=== PATIENT | male | born 1960 | race Caucasian/White ===

== ENCOUNTER → 2017-01-20 | Outpatient (CLI) | payer OTHER ==
[~2017-01-20] MED LIST: ASPI-515 PO; CHOL200024 PO; LEVO150T PO; LEVO175T2 PO; OMNIPAQUE 350 MG/ML, 100ML BOTTLE ONE
== END | disposition home or self-care (01) ==
LOC: CFH 14:53
PROVIDERS: ATTEND Thoracic Surgery (Cardiothoracic Vascular Surgery)
DX: Z01.818 Encounter for other preprocedural examination (principal); I71.2 Thoracic aortic aneurysm, without rupture; J98.11 Atelectasis; I77.810 Thoracic aortic ectasia; Z95.4 Presence of other heart-valve replacement
CPT/HCPCS: 71275; Q9967

== ENCOUNTER 2017-02-22 10:33 | Day surgery (SDC) | payer OTHER ==
[2017-02-21 09:57] VITALS: BP 95/67
[2017-02-21 10:45] LABS: ASPARTATE AMINO TRANSFERASE 41 U/L (15-37); BLOOD UREA NITROGEN 15 mg/dL (7-18)
[~2017-02-22] VITALS: Ht 175.3 cm; Wt 72.7 kg
[~2017-02-22 10:33] MED LIST changes: -OMNIPAQUE 350 MG/ML, 100ML BOTTLE ONE
[2017-02-22] MEDS ORDERED: HEPARIN 1,000 UNITS/ML, 10ML ONE (11:48)
[2017-02-22] MEDS ORDERED: MIDAZOLAM 1 MG/ML, 5ML ONE (11:48)
[2017-02-22] MEDS ORDERED: LIDOCAINE 2%, 20ML ONE (11:48)
[2017-02-22] MEDS ORDERED: VERAPAMIL 2.5 MG/ML, 2ML ONE (11:48)
[2017-02-22] MEDS ORDERED: FENTANYL PF 100 MCG/2ML ONE (11:48)
[2017-02-22] MEDS ORDERED: NITROGLYCERIN 5 MG/ML, 10ML ONE (12:03)
[2017-02-22] MEDS ORDERED: DIPHENHYDRAMINE 50 MG/ML, 1ML ONE (12:11)
[2017-02-22] MEDS ORDERED: SODIUM CHLORIDE 0.9% 1,000 ML IV SCH (12:32)
== END 2017-02-22 16:37 | disposition home or self-care (01) ==
LOC: CACL 10:33
PROVIDERS: ATTEND Internal Medicine Cardiovascular Disease
DX: Z01.810 Encounter for preprocedural cardiovascular examination (principal); Z95.2 Presence of prosthetic heart valve; E03.8 Other specified hypothyroidism; E55.9 Vitamin D deficiency, unspecified; E78.5 Hyperlipidemia, unspecified
CPT/HCPCS: 36415; 71020; 80053; 85025; 93005; 93458; 99156; 99157; C1769; C1894; J1200; J1644; J2250; J3010; J3490; Q9967

== ENCOUNTER 2017-03-16 04:33 | Inpatient (IN) | payer OTHER ==
[2017-03-15 14:20] LABS: ASPARTATE AMINO TRANSFERASE 35 U/L (15-37); BLOOD UREA NITROGEN 17 mg/dL (7-18)
[~2017-03-16] VITALS: Ht 175.3 cm; Wt 80.7 kg
[2017-03-16] MEDS ORDERED: CHLORHEXIDINE MOUTHWASH 15 ML UDC MM SCH (05:00)
[2017-03-16] MEDS ORDERED: DO NOT GIVE MC SCH (05:00)
[2017-03-16] MEDS ORDERED: INSULIN ASPART 100 UNITS/ML, PEN SQ-INSULIN SCH (06:00)
[2017-03-16] MEDS ORDERED: FENTANYL PF 1000 MCG/20ML ONE (07:03)
[2017-03-16] MEDS ORDERED: MIDAZOLAM 10MG/2 ML ONE (07:03)
[2017-03-16] MEDS ORDERED: MANNITOL PMX 20% 500 ML IVPB PRN (07:30)
[2017-03-16] MEDS ORDERED: ROCURONIUM 10 MG/ML ONE (07:30)
[2017-03-16] MEDS ORDERED: REGULAR INSULIN 62.5 UNITS in SODIUM CHLORIDE 0.9% 249.375 ML IV PRN ×2 (07:30→12:31)
[2017-03-16] MEDS ORDERED: ALBUMIN HUMAN 5% 500 ML IV ONE ×2 (07:30→17:00)
[2017-03-16] MEDS ORDERED: PHENYLEPHRINE 10 MG in SODIUM CHLORIDE 0.9% 249 ML IV PRN ×2 (07:30→12:31)
[2017-03-16] MEDS ORDERED: PROPOFOL 10 MG/ML, 20ML ONE (07:30)
[2017-03-16] MEDS ORDERED: DEXMEDETOMIDINE 200 MCG in SODIUM CHLORIDE 0.9% 48 ML IV SCH (07:30)
[2017-03-16] MEDS ORDERED: EPINEPHRINE 2 MG in SODIUM CHLORIDE 0.9% 248 ML IV SCH (07:30)
[2017-03-16] MEDS ORDERED: CEFUROXIME 1.5 GM in SODIUM CHLORIDE 0.9% 50 ML IVPB PRN (07:30)
[2017-03-16] MEDS ORDERED: POTASSIUM CHLORIDE 80 MEQ, SODIUM BICARBONATE 8.4% 10 MEQ, MAGNESIUM SULFATE 0.5 GM, LI... IV PRN (07:30)
[2017-03-16] MEDS ORDERED: VANCOMYCIN 1,100 MG in SODIUM CHLORIDE 0.9% 250 ML IV PRN (07:30)
[2017-03-16] MEDS ORDERED: MUPIROCIN OINT 2%, 22GM TP SCH (09:00)
[2017-03-16] MEDS: SODIUM CHLORIDE FLUSH 10ML SYR IVF SCH ×3 (09:00→20:35)
[2017-03-16] MEDS ORDERED: PROTAMINE SULFATE 10 MG/ML, 25ML ONE (11:52)
[2017-03-16] MEDS ORDERED: ALBUMIN HUMAN 25% 50 ML ONE (11:52)
[2017-03-16] MEDS ORDERED: CALCIUM CHLORIDE 10%, 10ML SYR ONE (11:52)
[2017-03-16] MEDS ORDERED: methylPREDNISolone SOD SUCC 125 MG/2 ML ONE (11:53)
[2017-03-16] MEDS ORDERED: HEPARIN 1,000 UNITS/ML, 30ML ONE (11:53)
[2017-03-16] MEDS ORDERED: AMINOCAPROIC ACID 250 MG/ML, 20ML ONE (11:53)
[2017-03-16] MEDS ORDERED: SODIUM BICARBONATE 1 MEQ/ML, 50ML VIAL ONE (11:53)
[2017-03-16] MEDS ORDERED: LIDOCAINE 2% 100MG/5ML SYRINGE ONE (11:53)
[2017-03-16] MEDS ORDERED: SODIUM CHLORIDE 0.9% 1,000 ML IV PRN (12:31)
[2017-03-16] MEDS ORDERED: DEXMEDETOMIDINE 200 MCG in SODIUM CHLORIDE 0.9% 48 ML IV PRN (12:31)
[2017-03-16] MEDS ORDERED: NITROGLYCERIN/D5W PMX 250 ML IV PRN (12:31)
[2017-03-16] MEDS ORDERED: SODIUM CHLORIDE 0.9% 1,000 ML IV ONE (12:31)
[2017-03-16] MEDS ORDERED: DOBUTAMINE 250 MG in SODIUM CHLORIDE 0.9% 230 ML IV PRN (12:31)
[2017-03-16 12:56] LABS: ABG COLLECTION SITE ARTERIAL LINE
[2017-03-16] MEDS ORDERED: MEPERIDINE/PF 25MG/0.5ML IVPush PRN (13:00)
[2017-03-16] MEDS ORDERED: GLUCAGON 1 MG IM PRN (13:00)
[2017-03-16] MEDS ORDERED: BISACODYL 5 MG EC TABLET PO PRN (13:00)
[2017-03-16] MEDS ORDERED: BISACODYL 10 MG SUPP PR PRN (13:00)
[2017-03-16] MEDS ORDERED: ACETAMINOPHEN 650 MG SUPP PR PRN (13:00)
[2017-03-16] MEDS ORDERED: morphine SULFATE 10 MG/ML, 1ML IVPush PRN (13:00)
[2017-03-16] MEDS ORDERED: DEXTROSE 4 GM TAB.CHEW PO PRN (13:00)
[2017-03-16] MEDS ORDERED: DEXTROSE 50%, 50ML SYRINGE IVPush PRN (13:00)
[2017-03-16] MEDS ORDERED: MIDAZOLAM 1 MG/ML, 5ML IVPush PRN (13:00)
[2017-03-16] MEDS ORDERED: EPINEPHRINE 2 MG in SODIUM CHLORIDE 0.9% 248 ML IV PRN (13:00)
[2017-03-16] MEDS ORDERED: HYDROcodone/APAP 10/325 MG TABLET PO PRN (13:00)
[2017-03-16] MEDS: SODIUM BICARB 8.4%, 50ML SYRINGE IV PRN ×2 (13:10→14:03)
[2017-03-16] MEDS: KSCALE TO 4.5 IV SCH ×2 (13:10→19:00)
[2017-03-16] MEDS: MAGNESIUM SULFATE 1 GM in SODIUM CHLORIDE 0.9% 50 ML IVPB SCH (13:22)
[2017-03-16] MEDS: LACTATED RINGERS 500 ML IVBOLUS PRN ×2 (14:30→15:00)
[2017-03-16] MEDS: ACETAMINOPHEN 325 MG TABLET PO PRN (16:41)
[2017-03-16] MEDS ORDERED: ALBUMIN HUMAN 25% 100 ML IV ONE (17:00)
[2017-03-16] MEDS: ONDANSETRON 2MG/ML, 2ML IVPush PRN (17:54)
[2017-03-16] MEDS: OXYcodone IR 5MG TABLET PO PRN (18:00)
[2017-03-16] MEDS: CEFUROXIME 1.5 GM in SODIUM CHLORIDE 0.9% 50 ML IVPB SCH (19:22)
[2017-03-16] MEDS: PROCHLORPERAZINE 5 MG/ML, 2ML IVPush PRN (19:22)
[2017-03-16] MEDS: INSULIN ASPART 100 UNITS/ML, PEN SQ-INSULIN PRN ×2 (19:32→20:34)
[2017-03-16] MEDS: VANCOMYCIN 1,100 MG in SODIUM CHLORIDE 0.9% 250 ML IVPB SCH (20:34)
[2017-03-16] MEDS: DOCUSATE 100 MG CAPSULE PO SCH (20:35)
[2017-03-16] MEDS: MUPIROCIN OINT 2%, 22GM NAS SCH (20:35)
[2017-03-17] MEDS: ONDANSETRON 2MG/ML, 2ML IVPush PRN ×2 (00:26→09:18)
[2017-03-17] MEDS: OXYcodone IR 5MG TABLET PO PRN ×5 (00:26→21:09)
[2017-03-17] MEDS: KSCALE TO 4.5 IV SCH ×2 (01:00→06:32)
[2017-03-17] MEDS: INSULIN ASPART 100 UNITS/ML, PEN SQ-INSULIN PRN ×6 (01:04→21:34)
[2017-03-17 04:22] VITALS: BP 110/50
[2017-03-17] MEDS: PROCHLORPERAZINE 5 MG/ML, 2ML IVPush PRN (05:39)
[2017-03-17 05:52] LABS: ABG COLLECTION SITE ARTERIAL LINE
[2017-03-17 06:09] LABS: BLOOD UREA NITROGEN 12 mg/dL (7-18)
[2017-03-17] MEDS: CEFUROXIME 1.5 GM in SODIUM CHLORIDE 0.9% 50 ML IVPB SCH (06:41)
[2017-03-17] MEDS: VANCOMYCIN 1,100 MG in SODIUM CHLORIDE 0.9% 250 ML IVPB SCH (07:40)
[2017-03-17] MEDS ORDERED: MAGNESIUM HYDROXIDE 8%, 30ML UDC PO PRN (08:00)
[2017-03-17] MEDS ORDERED: LEVOTHYROXINE 150 MCG TABLET PO SCH (09:00)
[2017-03-17] MEDS ORDERED: LEVOTHYROXINE 175 MCG TABLET PO SCH (09:00)
[2017-03-17] MEDS ORDERED: PANTOPRAZOLE 40 MG IV IVPush SCH (09:00)
[2017-03-17] MEDS: MUPIROCIN OINT 2%, 22GM NAS SCH ×2 (09:17→21:34)
[2017-03-17] MEDS: ASPIRIN 81 MG TABLET EC PO SCH (09:17)
[2017-03-17] MEDS: DOCUSATE 100 MG CAPSULE PO SCH ×2 (09:17→21:08)
[2017-03-17] MEDS: SODIUM CHLORIDE FLUSH 10ML SYR IVF SCH ×3 (09:17→21:09)
[2017-03-17] MEDS: LEVOTHYROXINE 175 MCG TABLET PO SCH (10:24)
[2017-03-17] MEDS: WARFARIN MODERAT DOSE PROTOCOL XX SCH (12:01)
[2017-03-17 13:15] VITALS: BP 116/65
[2017-03-17] MEDS: MAGNESIUM SULFATE 1 GM in SODIUM CHLORIDE 0.9% 50 ML IVPB SCH (14:26)
[2017-03-17] MEDS: CHLORHEXIDINE MOUTHWASH 15 ML UDC MM SCH (17:54)
[2017-03-17] MEDS ORDERED: WARFARIN 7.5 MG TABLET PO-COUM SCH (18:00)
[2017-03-17 18:56] VITALS: BP 101/66
[2017-03-18 01:35] VITALS: BP 144/75
[2017-03-18] MEDS: OXYcodone IR 5MG TABLET PO PRN ×2 (02:42→06:00)
[2017-03-18] MEDS: INSULIN ASPART 100 UNITS/ML, PEN SQ-INSULIN PRN ×4 (04:40→20:50)
[2017-03-18 04:54] LABS: BLOOD UREA NITROGEN 13 mg/dL (7-18)
[2017-03-18] MEDS: LEVOTHYROXINE 150 MCG TABLET PO SCH (05:59)
[2017-03-18] MEDS: CHLORHEXIDINE MOUTHWASH 15 ML UDC MM SCH ×2 (06:12→18:21)
[2017-03-18] MEDS: WARFARIN MODERAT DOSE PROTOCOL XX SCH (07:39)
[2017-03-18 08:17] VITALS: BP 112/72
[2017-03-18] MEDS: MUPIROCIN OINT 2%, 22GM NAS SCH ×2 (09:08→20:51)
[2017-03-18] MEDS: SODIUM CHLORIDE FLUSH 10ML SYR IVF SCH ×2 (09:08→20:51)
[2017-03-18] MEDS: PANTOPROZOLE 40MG TABLET PO SCH (09:08)
[2017-03-18] MEDS: DOCUSATE 100 MG CAPSULE PO SCH ×2 (09:08→20:51)
[2017-03-18] MEDS: ASPIRIN 81 MG TABLET EC PO SCH (09:09)
[2017-03-18] MEDS ORDERED: KETOROLAC 30 MG/1 ML IVPush SCH (13:00)
[2017-03-18] MEDS: MAGNESIUM SULFATE 1 GM in SODIUM CHLORIDE 0.9% 50 ML IVPB SCH (13:43)
[2017-03-18 14:55] VITALS: BP 111/68
[2017-03-18] MEDS ORDERED: WARFARIN 7.5 MG TABLET PO-COUM SCH (18:00)
[2017-03-18] MEDS ORDERED: KETOROLAC 30 MG/1 ML IVPush PRN (19:00)
[2017-03-18 19:08] VITALS: BP 128/69
[2017-03-19 01:57] VITALS: BP 113/72
[2017-03-19] MEDS: ONDANSETRON 2MG/ML, 2ML IVPush PRN (01:57)
[2017-03-19] MEDS: CHLORHEXIDINE MOUTHWASH 15 ML UDC MM SCH (06:25)
[2017-03-19] MEDS: LEVOTHYROXINE 175 MCG TABLET PO SCH (06:25)
[2017-03-19 06:51] LABS: BLOOD UREA NITROGEN 11 mg/dL (7-18)
[2017-03-19 08:26] VITALS: BP 107/67
[2017-03-19] MEDS: METOPROLOL TARTRATE 25 MG TABLET PO SCH ×2 (08:37→19:16)
[2017-03-19] MEDS: DOCUSATE 100 MG CAPSULE PO SCH ×2 (08:38→20:48)
[2017-03-19] MEDS: ASPIRIN 81 MG TABLET EC PO SCH (08:38)
[2017-03-19] MEDS: PANTOPROZOLE 40MG TABLET PO SCH (08:38)
[2017-03-19] MEDS: MUPIROCIN OINT 2%, 22GM NAS SCH ×2 (08:38→20:48)
[2017-03-19] MEDS: SODIUM CHLORIDE FLUSH 10ML SYR IVF SCH ×2 (08:38→13:28)
[2017-03-19] MEDS: ACETAMINOPHEN 325 MG TABLET PO PRN ×2 (09:56→19:48)
[2017-03-19] MEDS: WARFARIN MODERAT DOSE PROTOCOL XX SCH (12:00)
[2017-03-19] MEDS ORDERED: BISACODYL 10 MG SUPP PR PRN (13:30)
[2017-03-19] MEDS ORDERED: ACETAMINOPHEN 650 MG SUPP PR PRN (13:30)
[2017-03-19] MEDS ORDERED: DEXTROSE 4 GM TAB.CHEW PO PRN (13:30)
[2017-03-19] MEDS ORDERED: BISACODYL 5 MG EC TABLET PO PRN (13:30)
[2017-03-19 13:38] VITALS: BP 106/66
[2017-03-19 18:00] VITALS: BP 99/60
[2017-03-19] MEDS ORDERED: WARFARIN 7.5 MG TABLET PO-COUM SCH (18:00)
[2017-03-19 18:33] VITALS: BP 98/66
[2017-03-19 19:33] VITALS: BP 97/59
[2017-03-20 01:26] VITALS: BP 100/64
[2017-03-20] MEDS: SODIUM CHLORIDE FLUSH 10ML SYR IVF SCH ×2 (01:30→18:40)
[2017-03-20] MEDS: LEVOTHYROXINE 150 MCG TABLET PO SCH (05:36)
[2017-03-20 06:02] LABS: BLOOD UREA NITROGEN 14 mg/dL (7-18)
[2017-03-20 07:14] VITALS: BP 101/67
[2017-03-20] MEDS ORDERED: TRAM50TA2 PO (08:04)
[2017-03-20] MEDS ORDERED: PANT40TA5 PO (08:04)
[2017-03-20] MEDS ORDERED: WARF7.5T PO-COUM (08:04)
[2017-03-20] MEDS ORDERED: DOCU-30 PO (08:04)
[2017-03-20] MEDS: PANTOPROZOLE 40MG TABLET PO SCH (08:17)
[2017-03-20] MEDS: DOCUSATE 100 MG CAPSULE PO SCH ×2 (09:00→20:50)
[2017-03-20] MEDS ORDERED: LIDOCAINE 1%, 20ML ONE (09:01)
[2017-03-20] MEDS: MUPIROCIN OINT 2%, 22GM NAS SCH ×2 (10:00→20:47)
[2017-03-20] MEDS: ASPIRIN 81 MG TABLET EC PO SCH (10:00)
[2017-03-20] MEDS: WARFARIN MODERAT DOSE PROTOCOL XX SCH (12:00)
[2017-03-20 15:37] VITALS: BP 105/65
[2017-03-20] MEDS ORDERED: WARFARIN 7.5 MG TABLET PO-COUM SCH (18:00)
[2017-03-20] MEDS: ACETAMINOPHEN 325 MG TABLET PO PRN (18:40)
[2017-03-20 19:35] VITALS: BP 121/75
[2017-03-21 05:51] LABS: BLOOD UREA NITROGEN 15 mg/dL (7-18)
[2017-03-21] MEDS: LEVOTHYROXINE 175 MCG TABLET PO SCH (05:58)
[2017-03-21 05:59] VITALS: BP 106/68
[2017-03-21] MEDS: SODIUM CHLORIDE FLUSH 10ML SYR IVF SCH (05:59)
[2017-03-21 06:48] VITALS: BP 116/73
[2017-03-21] MEDS: PANTOPROZOLE 40MG TABLET PO SCH (08:52)
[2017-03-21] MEDS: ASPIRIN 81 MG TABLET EC PO SCH (08:52)
[2017-03-21] MEDS: DOCUSATE 100 MG CAPSULE PO SCH (08:53)
[2017-03-21] MEDS: MUPIROCIN OINT 2%, 22GM NAS SCH (08:53)
[2017-03-21] MEDS: WARFARIN MODERAT DOSE PROTOCOL XX SCH (11:03)
[2017-03-21 13:07] VITALS: BP 106/68
[2017-03-21] MEDS ORDERED: WARFARIN 5 MG TABLET PO-COUM SCH (18:00)
== END 2017-03-21 14:00 | disposition home health service (06) | DRG 220 ==
LOC: CSU 04:33 → 5SO 03-17 12:38 → DCLOUNGE 03-21 13:35
PROVIDERS: ADMIT Thoracic Surgery (Cardiothoracic Vascular Surgery); ATTEND Thoracic Surgery (Cardiothoracic Vascular Surgery)
PROC: 5A1221Z Performance of Cardiac Output, Continuous (ICD-10-PCS; 2017-03-16)
PROC: B246ZZ4 Ultrasonography of Right and Left Heart, Transesophageal (ICD-10-PCS; 2017-03-16)
PROC: 02RX0JZ Replacement of Thoracic Aorta, Ascending/Arch with Synthetic Substitute, Open Approach (ICD-10-PCS; 2017-03-16)
PROC: 5A1223Z Performance of Cardiac Pacing, Continuous (ICD-10-PCS; 2017-03-16)
PROC: 02RF08Z Replacement of Aortic Valve with Zooplastic Tissue, Open Approach (ICD-10-PCS; principal; 2017-03-16 07:30)
DX: I35.0 Nonrheumatic aortic (valve) stenosis (principal); E87.2 Acidosis; J81.1 Chronic pulmonary edema; I71.2 Thoracic aortic aneurysm, without rupture; E03.9 Hypothyroidism, unspecified; E78.5 Hyperlipidemia, unspecified; I27.2 Other secondary pulmonary hypertension
CPT/HCPCS: 36415; 36600; 71010; 71020; 80048; 80053; 81003; 82040; 82330; 82800; 82803; 82810; 82947; 82962; 83036; 83735; 84132; 84295; 85014; 85018; 85025; 85049; 85347; 85610; 85730; 86850; 86900; 86923; 87081; 88304; 88305; 93005; 93312; 93321; 93325; 93880; 94002; C1768; J0697; J1644; J1815; J1885; J2250; J2405; J2704; J2720; J3010; J3370; J3475; J3480; J3490; J7120; P9045; P9047; C1751; C1760; C9113; J0171; J0780; J2270; J2370; J2930; J7030; J7050

== ENCOUNTER → 2017-04-18 | Outpatient (CLI) | payer OTHER ==
[~2017-04-18] MED LIST changes: +DOCU-30 PO; +PANT40TA5 PO; +TRAM50TA2 PO; +WARF7.5T PO-COUM
== END | disposition home or self-care (01) ==
LOC: CFH 13:43
PROVIDERS: ATTEND Nurse Practitioner Family
DX: N62 Hypertrophy of breast (principal); N64.4 Mastodynia; Z80.3 Family history of malignant neoplasm of breast
CPT/HCPCS: 76641; G0204

== ENCOUNTER → 2018-01-20 | Outpatient (CLI) | payer OTHER ==
[~2018-01-20] MED LIST changes: +DOCU-131 PO; -DOCU-30 PO
== END | disposition home or self-care (01) ==
LOC: CVU 09:39
PROVIDERS: ATTEND Internal Medicine Cardiovascular Disease
DX: Z48.812 Encounter for surgical aftercare following surgery on the circulatory system (principal); Z95.2 Presence of prosthetic heart valve
CPT/HCPCS: 93306

== ENCOUNTER → 2019-01-16 | Outpatient (CLI) | payer OTHER | END | disposition home or self-care (01) | LOC: CVU 07:43 | PROVIDERS: ATTEND Internal Medicine Cardiovascular Disease | DX: I08.8 Other rheumatic multiple valve diseases (principal); Z95.2 Presence of prosthetic heart valve | CPT/HCPCS: 93306 ==

== ENCOUNTER → 2019-08-22 | Outpatient (CLI) | payer OTHER | END | disposition home or self-care (01) | LOC: CFH 10:09 | PROVIDERS: ATTEND Naturopath | CPT/HCPCS: 77080 ==

== ENCOUNTER → 2020-02-29 | Outpatient (CLI) | payer OTHER | END | disposition home or self-care (01) | LOC: CFH 06:51 | PROVIDERS: ATTEND Internal Medicine Cardiovascular Disease | DX: I05.8 Other rheumatic mitral valve diseases (principal); Z95.2 Presence of prosthetic heart valve | CPT/HCPCS: 93306 ==

== ENCOUNTER 2021-02-04 17:27 | Emergency (ER) | payer OTHER ==
[~2021-02-04] VITALS: Ht 175.3 cm; Wt 71.5 kg
[~2021-02-04 17:27] MED LIST changes: -ASPI-515 PO; +ASPI-963 PO; -PANT40TA5 PO; +PANT40TA6 PO
--- NOTE | 2021-02-04 17:32 | NUR ---
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
--- NOTE | 2021-02-04 17:46 | NUR ---
CC OF DIFFICULTY BREATHING AFTER CLEANING POOL AND INHALING CLEANING CHEMICALS TODAY. PT STATES "IT WAS RIGHT IN MY FACE AND I ONLY GOT A SECOND WORTH OF IT BUT THEN I STARTED COUGHING". PT IS SPEAKING IN CLEAR FULL SENTENCES, ABLE TO LAY BACK AND RESPIRATIONS ARE EVEN AND UNLABORED. LUNG SOUNDS CLEAR. AT BEDSIDE.
[2021-02-04 19:30] VITALS: BP 92/61
== END 2021-02-04 19:52 | disposition home or self-care (01) ==
LOC: ED 18:32
DX: R06.00 Dyspnea, unspecified (principal); J68.9 Unspecified respiratory condition due to chemicals, gases, fumes and vapors; R07.9 Chest pain, unspecified
CPT/HCPCS: 71045; 99283